=== PATIENT | male | born 1975 | race Hispanic/Latino ===

== ENCOUNTER 2022-12-31 15:57 | Emergency (ER) | payer SELFPAY ==
[~2022-12-31] VITALS: Ht 175.3 cm; Wt 63.5 kg
[2022-12-31 15:25] VITALS: BP 123/71; PULSE 90; RESP 20; TEMP 98.1; O2SAT 97
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
[2022-12-31 15:48] VITALS: BP_SYST 123; RESP 20
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
--- NOTE | 2022-12-31 16:12 | NUR ---
AMA PT REFUSES LACERATION TO BE SUTURED, PT STATES HE DOES NOT HAVE ENOUGH PAIN TOLERANCE. PT STATES HE JUST WANTS STERI STRIPS AND WANTS TO LEAVE WITHOUT TREATMENT OR IMAGING. PT STATES HE WANTS HIS BACKPACK AND TO BE ON HIS WAY. PT EDUCATED ON NEED OF SUTURES TO DECREASE INFECTION RATE AND AIDE IN HEALING, PT VERBALIZES UNDERSTANDING BUT DOES NOT WANT ANY TREATMENT.
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
== END 2022-12-31 16:12 | disposition left against medical advice (07) ==
LOC: EDBD 15:57 → ER 15:57
DX: S01.91XA Laceration without foreign body of unspecified part of head, initial encounter (principal); S09.90XA Unspecified injury of head, initial encounter; F15.90 Other stimulant use, unspecified, uncomplicated; W19.XXXA Unspecified fall, initial encounter; Y93.89 Activity, other specified; Y92.89 Other specified places as the place of occurrence of the external cause; Y99.8 Other external cause status
CPT/HCPCS: 99284